=== PATIENT | male | born 1955 | race Caucasian/White ===

== ENCOUNTER → 2020-03-28 | Outpatient (CLI) | payer BC ==
[~2020-03-28] MED LIST: AMLO10TA8 PO; CYCL-331 PO; DOCU-109 PO; GABA-586 PO; LISI2.5T PO; PANT40TA5 PO; TRAM50TA PO
== END | disposition home or self-care (01) ==
LOC: LAB 09:50
PROVIDERS: ATTEND Registered Nurse
DX: Z11.59 Encounter for screening for other viral diseases (principal)
CPT/HCPCS: C9803; U0003

== ENCOUNTER → 2020-03-30 | Day surgery (SDC) | payer BC ==
[~2020-03-30] MED LIST changes: +IV RINGERS SOLUTION,LACTATED 1,000 ML IV SCH; +ONDANSETRON PF 4 MG/2 ML VIAL. ONE; +PROPOFOL 10,000 MCG/ML (20ML) VIAL IV ONE
--- NOTE | 2020-04-02 16:06 | PATHOLOGY ---
[facility] Accession Number: [id number] . 01 Material submitted: . PART A: stomach - ANTRUM PART B: esophagus - DISTAL ESOPHAGUS. Modifiers: distal . 01 Clinical history: . None provided . 02 Diagnosis: A. Gastric biopsies, antrum: - Chronic gastritis, mild. . B. Esophageal biopsy, distal esophagus: - Reflux esophagitis. (JPM:ken; 04/02/2020) QMS 04/02/2020 0850 Local . 02 Comment: Sections of the gastric antral biopsy show congestion and mild chronic inflammation. A properly controlled immunoperoxidase stain for Helicobacter is negative for Helicobacter organisms. . Sections of the distal esophageal biopsy reveal a segment of mildly hyperplastic squamous esophageal mucosa with attached small portion of gastric mucosa showing chronic inflammation. The findings are consistent with reflux esophagitis. There is no evidence of Torres's change, dysplasia, or malignancy. (JPM:ken; 04/02/2020) . . Special stain performed: Immunoperoxidase stain for Helicobacter on A1. . 02 Electronically signed: . Timothy Brown MD, Pathologist NPI- [id number] . 01 Gross description: . A. The specimen is received in formalin, labeled "Tyler Jeromy, antrum". Received are two segments of pale vargas soft tissue measuring 0.3 cm each in maximum dimensions. The specimen is submitted entirely in cassette A1. . B. The specimen is received in formalin, labeled "Tyler Jeromy, distal esophagus". Received is a segment of pale vargas soft tissue measuring 0.3 cm in maximum dimensions. The specimen is submitted entirely in cassette B1. (CAA; 03/30/2020) QAC/QAC 03/30/2020 1823 Local . 02 Pathologist provided ICD-10: K29.50, K21.0 . 02 CPT . 848553, 230064, A12031 Specimen Comment: A courtesy copy of this report has been sent to [phone], [phone] Specimen Comment: 2030 Specimen Comment: Report sent to / DR OLMEDO Performed at: 01 [facility] [address] [address], [place] [id number] MD Lonny Gutierrez MD Phone: [phone] Performed at: 02 [facility] [address] [place], [place] [id number] MD Timothy Brown MD Phone: [phone]
== END ==
LOC: SURG 09:13
PROVIDERS: ATTEND Internal Medicine Gastroenterology
DX: Z12.11 Encounter for screening for malignant neoplasm of colon (principal); K29.50 Unspecified chronic gastritis without bleeding; K22.2 Esophageal obstruction; K29.01 Acute gastritis with bleeding; K57.30 Diverticulosis of large intestine without perforation or abscess without bleeding; I10 Essential (primary) hypertension; K44.9 Diaphragmatic hernia without obstruction or gangrene; F41.9 Anxiety disorder, unspecified; F32.9 Major depressive disorder, single episode, unspecified; E66.9 Obesity, unspecified; Z68.31 Body mass index [BMI] 31.0-31.9, adult; Z85.038 Personal history of other malignant neoplasm of large intestine; Z87.891 Personal history of nicotine dependence; Z90.49 Acquired absence of other specified parts of digestive tract; Z87.39 Personal history of other diseases of the musculoskeletal system and connective tissue
CPT/HCPCS: 43239; 43450; 45378; 88305; 88342; J2704; J7120